=== PATIENT | male | born 1955 | race Caucasian/White ===

== ENCOUNTER 2022-10-16 11:30 | Outpatient (OUT) | payer MEDICARE, OTHER, SELFPAY ==
[2022-10-16 12:42] LABS: Anion Gap 17.2; BUN Creatinine Ratio 23.2; Calcium 8.8 mg/dL (8.5-10.1); Carbon Dioxide 22.8 mmol/L (21.0-32.0); Chloride 103 mmol/L (98-107); Estimated GFR (African America 27 (>=60); Estimated GFR (Non-African Ame 23 (>=60); Glucose 189 mg/dL (74-106); Magnesium 1.8 mg/dL (1.8-2.4); Sodium 138 mmol/L (136-145); Uric Acid 8.1 mg/dL (3.5-7.2)
[2022-10-17 10:08] LABS: PTH, Intact 24 pg/mL (15-65)
== END 2022-10-16 11:31 | disposition home or self-care (01) ==
LOC: LAB 11:35
PROVIDERS: PCP Family Medicine
DX: N18.9 Chronic kidney disease, unspecified (principal)
CPT/HCPCS: 36415; 80048; 83735; 83970; 84550

== ENCOUNTER 2022-11-15 09:21 | Outpatient (OUT) | payer MEDICARE, OTHER, SELFPAY ==
[2022-11-15 11:03] LABS: Anion Gap 13.8; BUN Creatinine Ratio 20.8; Calcium 9.2 mg/dL (8.5-10.1); Carbon Dioxide 23.2 mmol/L (21.0-32.0); Chloride 102 mmol/L (98-107); Estimated GFR (African America 30 (>=60); Estimated GFR (Non-African Ame 25 (>=60); Glucose 307 mg/dL (74-106); Magnesium 1.7 mg/dL (1.8-2.4); Sodium 135 mmol/L (136-145); Uric Acid 6.8 mg/dL (3.5-7.2)
[2022-11-16 15:09] LABS: PTH, Intact 40 pg/mL (15-65)
== END 2022-11-15 09:22 | disposition home or self-care (01) ==
LOC: LAB 09:23
PROVIDERS: PCP Family Medicine
DX: N18.9 Chronic kidney disease, unspecified (principal)
CPT/HCPCS: 36415; 80048; 83735; 83970; 84550

== ENCOUNTER 2023-02-06 13:10 | Emergency (ER) | payer MEDICARE, OTHER, SELFPAY ==
[2023-02-06 13:15] VITALS: PULSE 73; RESP 20; TEMP 36.8; O2SAT 99; BMI 25.8
--- NOTE | 2023-02-06 13:23 | ED_ITS ---
HPI - Back Pain/Injury General Chief Complaint: Back Pain/Injury Stated Complaint: BACK PAIN Time Seen by Provider: 02/06/23 13:18 Source: patient Mode of arrival: walk-in Limitations: no limitations History of Present Illness HPI Narrative: Patient is a 67-year-old male with a history of diabetes who presents to the emergency department for 3 to 4-day history of increasing low back pain. Patient reports most of his pain in the right low back and right hip. Pain is worse with movement. He denies any specific mechanism of injury or trauma, he states he may have been lifting to precipitate the back pain. He has no significant history of chronic back pain, no previous surgeries. He states pain radiates into the back of the right hip but he has not had any significant radicular symptoms, no peripheral paresthesias or urinary changes. Related Data Home Medications Medication Instructions Recorded Confirmed abiraterone 500 mg tablet (Zytiga) 1,000 mg PO DAILY 02/06/23 02/06/23 finerenone 10 mg tablet (Kerendia) 10 mg PO DAILY 02/06/23 02/06/23 glipizide 10 mg tablet 10 mg PO BID 02/06/23 02/06/23 metformin 500 mg tablet,extended 500 mg PO BID 02/06/23 02/06/23 release 24 hr paroxetine HCl 10 mg tablet (Paxil) 10 mg PO DAILY 02/06/23 02/06/23 prednisone 5 mg tablet 5 mg PO DAILY 02/06/23 02/06/23 rosuvastatin 20 mg tablet (Crestor) 20 mg PO DAILY 02/06/23 02/06/23 Previous Rx's Medication Instructions Recorded hydrocodone 5 mg-acetaminophen 325 1 tab PO Q6H PRN pain #12 tabs 02/06/23 mg tablet ketorolac 10 mg tablet 10 mg PO TID PRN pain #9 tabs 02/06/23 methocarbamol 750 mg tablet 750 mg PO TID PRN pain #20 tabs 02/06/23 Allergies Allergy/AdvReac Type Severity Reaction Status Date / Time No Known Drug Allergies Allergy Verified 02/06/23 13:15 Review of Systems ROS Constitutional Denies: fever or chills Ears, nose, mouth, and throat Denies: throat pain Cardiovascular Denies: chest pain Respiratory Denies: shortness of breath or cough Gastrointestinal Denies: abdominal pain, nausea or vomiting Genitourinary Denies: painful urination Musculoskeletal Reports: back pain; Denies: neck pain, extremity pain or extremity swelling Integumentary/Breast Denies: rash Neurological Denies: headache Exam Narrative Exam Narrative: Gen.: Awake, alert, in no distress Head: Normocephalic, atraumatic ENT: Moist mucous membranes Respiratory: No respiratory distress Back: No bony point tenderness of the T-spine or L-spine with diffuse tenderness of the paraspinal muscles of the lower lumbar spine on the right. No obvious deformity or step-off. Extremities: Moves extremities equally, normal dorsiflexion and plantarflexion of the bilateral lower extremities with no decrease in sensation to the medial thighs. Normal hip flexion bilaterally Psych: Normal mood and affect Neuro: No focal neuro deficit Skin: Warm, dry, intact Constitutional Vital Signs, click to edit/add: Last Vital Signs Temp 98.3 F 02/06/23 13:15 Pulse 73 02/06/23 13:15 Resp 20 02/06/23 13:15 BP 175/86 H 02/06/23 13:25 Pulse Ox 99 02/06/23 13:15 O2 Del Method Room Air 02/06/23 13:15 Course Vital Signs Vital signs: Vital Signs Temperature 98.3 F 02/06/23 13:15 Pulse Rate 73 02/06/23 13:15 Respiratory Rate 20 02/06/23 13:15 Pulse Oximetry 99 02/06/23 13:15 Oxygen Delivery Method Room Air 02/06/23 13:15 Temperature 98.3 F 02/06/23 13:15 Pulse Rate 73 02/06/23 13:15 Respiratory Rate 20 02/06/23 13:15 Blood Pressure 175/86 H 02/06/23 13:25 Pulse Oximetry 99 02/06/23 13:15 Oxygen Delivery Method Room Air 02/06/23 13:15 MDM - Back Pain/Injury MDM Narrative Medical decision making narrative: Lumbar spine x-rays with moderate arthritic changes and curvature of the spine. Exam is consistent with lumbosacral strain, no focal neuro deficits in the emergency department. Patient drove himself to the ER, treated with Toradol in the ER, discharged home with prescription for [place], Toradol, Robaxin. Follow- up with PCP and return to the ER if symptoms change or worsen. Medical Records Attestation: I reviewed the patient's medical records. Imaging Data XR lumbar spine: Attestation: I have reviewed the pertinent imaging results. Radiologist's impression: Procedure: XR lumbar spine 2-3V EXAMINATION: XR lumbar spine 2-3V HISTORY: Low back pain COMPARISON: No relevant comparison available. FINDINGS: BONES: Moderate left convex curvature of the lumbar spine. Grade 1 retrolisthesis of L2 on 3. Sclerosis adjacent the contiguous endplates of L2-3 suspected represent degenerative endplate changes rather than compression fracture. Moderate degenerative facet arthropathy L3-4 through L5-S1. No bone lesion. DISC SPACES: Marked narrowing along right side of L2-3. Marked narrowing L5-S1. Moderate narrowing L3-L4 and L4-5. PARASPINOUS: Negative. No paraspinous abnormality is seen. OTHER: Negative. IMPRESSION: 1. No appreciable acute abnormality. 2. Multilevel moderate degenerative changes. Electronically authenticated by: ELIEL MCDERMOTT Date: 02/06/2023 14:08 Discharge Plan Discharge Chief Complaint: Back Pain/Injury Clinical Impression: Low back pain, Lumbosacral strain Patient Disposition: Home, Self-Care Time of Disposition Decision: 14:25 Condition: Good Prescriptions / Home Meds: New hydrocodone-acetaminophen 5-325 mg tablet 1 tab PO Q6H PRN (Reason: pain) Qty: 12 0RF ketorolac 10 mg tablet 10 mg PO TID PRN (Reason: pain) Qty: 9 0RF methocarbamol 750 mg tablet 750 mg PO TID PRN (Reason: pain) Qty: 20 0RF No Action Kerendia 10 mg tablet 10 mg PO DAILY glipizide 10 mg tablet 10 mg PO BID metformin 500 mg tablet extended release 24 hr 500 mg PO BID prednisone 5 mg tablet 5 mg PO DAILY abiraterone [Zytiga] 500 mg tablet 1,000 mg PO DAILY Rx Instructions: must be taken on empty stomach, at least 1 hr before or 2 hrs after a meal/food paroxetine HCl [Paxil] 10 mg tablet 10 mg PO DAILY rosuvastatin [Crestor] 20 mg tablet 20 mg PO DAILY Instructions: Low Back Strain (ED), Acute Low Back Pain (ED) Stand Alone Forms: Portal Instructions Referrals: RONY MCGUIRE [Primary Care Provider] - 1 week
[2023-02-06 13:25] VITALS: BP 175/86
[2023-02-06] MEDS: KETOROLAC TROMETHAMINE 60 MG/2 ML VIAL IM (13:29)
--- NOTE | 2023-02-06 13:54 | XR_ITS ---
The [address] [address] Patient Name: GENEVIEVE SPARKS MRN: [id number] date: 1955 Sex: M Assigned Patient Location: ER Current Patient Location: ER Accession/Order Number: [id number] Exam Date: 02/06/2023 13:50 Report Date: 02/06/2023 14:08 At the request of: RAMON MILLS Procedure: XR lumbar spine 2-3V EXAMINATION: XR lumbar spine 2-3V HISTORY: Low back pain COMPARISON: No relevant comparison available. FINDINGS: BONES: Moderate left convex curvature of the lumbar spine. Grade 1 retrolisthesis of L2 on 3. Sclerosis adjacent the contiguous endplates of L2-3 suspected represent degenerative endplate changes rather than compression fracture. Moderate degenerative facet arthropathy L3-4 through L5-S1. No bone lesion. DISC SPACES: Marked narrowing along right side of L2-3. Marked narrowing L5-S1. Moderate narrowing L3-L4 and L4-5. PARASPINOUS: Negative. No paraspinous abnormality is seen. OTHER: Negative. XR/XR lumbar spine 2-3V IMPRESSION: 1. No appreciable acute abnormality. 2. Multilevel moderate degenerative changes. Electronically authenticated by: ELIEL MCDERMOTT Date: 02/06/2023 14:08
== END 2023-02-06 14:45 | disposition home or self-care (01) ==
PROVIDERS: Emergency Provider Emergency Medicine Emergency Medical Services; PCP Family Medicine
DX: S39.012A Strain of muscle, fascia and tendon of lower back, initial encounter (principal); E11.9 Type 2 diabetes mellitus without complications; Z79.899 Other long term (current) drug therapy; Z79.84 Long term (current) use of oral hypoglycemic drugs; X50.9XXA Other and unspecified overexertion or strenuous movements or postures, initial encounter
CPT/HCPCS: 72100; 96372; 99284

== ENCOUNTER 2023-10-31 08:48 | Outpatient (OUT) | payer MEDICARE, OTHER, SELFPAY ==
--- NOTE | 2023-10-31 | US_ITS ---
The [address] [address] Patient Name: GENEVIEVE SPARKS MRN: [id number] date: 1955 Sex: M Assigned Patient Location: Current Patient Location: Accession/Order Number: [id number] Exam Date: 10/31/2023 09:40 Report Date: 10/31/2023 14:00 At the request of: NON-STAFF PHYSICIAN Procedure: US venous doppler LE BI CLINICAL DATA: Swelling of the right leg. PROCEDURE: Bilateral lower extremity venous duplex ultrasound TECHNIQUE: Nix-scale, color flow, and waveform spectral analysis was performed of the bilateral lower extremities. FINDINGS: Acute appearing thrombus is seen within the right common femoral vein, femoral vein, and popliteal vein. Superficial venous thrombosis is seen within the right great saphenous vein. Chronic superficial venous thrombosis is seen within the small saphenous vein. The left common femoral, femoral, and popliteal veins are compressible. No superficial thrombus is seen within the left lower extremity. US/US venous doppler LE BI IMPRESSION: 1. Acute appearing thrombus noted within the right lower extremity as noted above. 2. Acute appearing superficial venous thrombosis involving the right great saphenous vein with chronic changes seen within the small saphenous vein. Electronically authenticated by: Ricco FAIRBANKS Date: 10/31/2023 14:00
--- NOTE | 2023-10-31 08:51 | US_ITS ---
The [address] [address] Patient Name: GENEVIEVE SPARKS MRN: [id number] date: 1955 Sex: M Assigned Patient Location: US Current Patient Location: Accession/Order Number: [id number] Exam Date: 10/31/2023 09:00 Report Date: 10/31/2023 14:00 At the request of: NON-STAFF PHYSICIAN Procedure: US arterial duplex LE BI EXAM: US arterial duplex LE BI HISTORY: Localized Edema. COMPARISON: None. TECHNIQUE: Nix-scale, color Doppler, and spectral Doppler waveform analysis was used to evaluate the bilateral lower extremity arteries. FINDINGS: Color-flow was seen throughout. No significant velocity elevations were seen to suggest a significant stenosis. However, it was difficult to obtain color flow and portions of the bilateral posterior tibial arteries. The anterior tibial arteries are widely patent. US/US arterial duplex LE BI IMPRESSION: No significant arterial occlusive disease noted by duplex criteria. However, there was limited color flow within the bilateral posterior tibial arteries. Electronically authenticated by: Ricco FAIRBANKS Date: 10/31/2023 14:00
== END 2023-10-31 08:49 | disposition home or self-care (01) ==
LOC: US 08:48
DX: R60.0 Localized edema (principal); E08.59 Diabetes mellitus due to underlying condition with other circulatory complications; I82.811 Embolism and thrombosis of superficial veins of right lower extremity
CPT/HCPCS: 93925; 93970

== ENCOUNTER 2023-10-31 10:11 | Emergency (ER) | payer MEDICARE, OTHER, SELFPAY ==
[2023-10-31 10:14] VITALS: BP 136/72; PULSE 68; TEMP 36.4; O2SAT 100; BMI 26.5
--- NOTE | 2023-10-31 10:33 | PC.NURSE ---
pt was sent over by ultrasound for finding a DVT in R lower ext. pain and swelling to extremity has been ongoing for 3 days
--- NOTE | 2023-10-31 10:57 | ECG_ITS ---
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
[2023-10-31 11:28] LABS: Hematocrit 35.4 % (42.0-54.0); Hemoglobin 12.2 g/dL (14.0-18.0); Mean Corpuscular HGB Conc 34.5 g/dL (29.9-35.2); Mean Corpuscular Hemoglobin 30.9 pg (25.9-34.0); Mean Corpuscular Volume 89.6 fL (80.0-94.0); Mean Platelet Volume 11.5 fL (9.5-13.5); Platelet Count 162 10^3/uL (150-450); Red Blood Count 3.95 10^6/uL (4.70-6.10); Red Cell Distribution Width 13.9 % (11.0-15.0); White Blood Count 7.6 10^3/uL (4.0-11.0)
[2023-10-31 11:33] LABS: INR 0.97; Prothrombin Time 10.3 sec (9.0-11.6)
[2023-10-31 11:34] LABS: Alanine Aminotransferase 16 U/L (16-63); Albumin Globulin Ratio 0.8; Albumin Level 3.3 g/dL (3.4-5.0); Alkaline Phosphatase 87 U/L (46-116); Anion Gap 15.6; Aspartate Amino Transferase 11 U/L (15-37); BUN Creatinine Ratio 23.4; Bilirubin Total 0.3 mg/dL (0.2-1.0); Calcium 9.6 mg/dL (8.5-10.1); Carbon Dioxide 23.8 mmol/L (21.0-32.0); Chloride 104 mmol/L (98-107); Estimated GFR (African America 29 (>=60); Estimated GFR (Non-African Ame 24 (>=60); Glucose 244 mg/dL (74-106); Potassium 4.4 mmol/L (3.5-5.1); Sodium 139 mmol/L (136-145); Total Protein 7.3 g/dL (6.4-8.2)
[2023-10-31 13:00] LABS: Eosinophils Absolute Manual 0.45 10^3/uL (0.00-0.70); Lymphocytes Absolute Manual 0.45 10^3/uL (1.20-3.80); Segmented Neut Absolute Manual 6.08 10^3/uL (1.4-6.5)
--- NOTE | 2023-10-31 13:32 | ED.EXTPRO1 ---
HPI - Extremity Problem General Chief complaint: Extremity Problem, Nontraumatic Stated complaint: DVT FOUND IN LEG PER RADIOLOGY Time Seen by Provider: 10/31/23 10:32 Source: patient Mode of arrival: walk-in Limitations: no limitations History of Present Illness HPI Narrative: The patient presenting to us with a right leg swelling that was diagnosed with a DVT as outpatient, the patient had a study done today it was not read yet but they told him to come to the ER, for the last 3 to 4 days he has been having swelling in his right leg he did not follow-up with his primary care doctor his aircraft accessories mechanic did the workup without The patient is not complaining of any fever chills chest pain or any shortness of breath He did mention that he had no history of DVT before and he had no immobilization or any incident where he was sleeping all day for the last few days The patient does not have a history of DVT Related Data Home Medications ?Medication ?Instructions ?Recorded ?Confirmed glipizide 10 mg tablet 10 mg PO BID 02/06/23 10/31/23 metformin 500 mg tablet,extended 500 mg PO BID 02/06/23 10/31/23 release 24 hr paroxetine HCl 10 mg tablet (Paxil) 10 mg PO DAILY 02/06/23 10/31/23 rosuvastatin 20 mg tablet (Crestor) 20 mg PO DAILY 02/06/23 10/31/23 bisoprolol 10 1 tab PO DAILY 10/31/23 10/31/23 mg-hydrochlorothiazide 6.25 mg tablet empagliflozin 10 mg tablet 10 mg PO DAILY 10/31/23 10/31/23 (Jardiance) Previous Rx's ?Medication ?Instructions ?Recorded apixaban 5 mg (74 tabs) tablets in See Rx Instructions .Route 10/31/23 a dose pack (Eliquis DVT-PE Treat .COMPLEX #74 ea 30D Start) Allergies Allergy/AdvReac Type Severity Reaction Status Date / Time No Known Drug Allergies Allergy Verified 10/31/23 10:19 Review of Systems ROS Status of ROS 10 or more systems reviewed and unremarkable except as noted in history and below Exam Narrative Exam Narrative: Nurses notes and vital signs reviewed and patient is not hypoxic. General: Well-appearing and in no apparent distress. Skin: Warm, dry, no pallor noted. No rash. Head: Normocephalic, atraumatic. Neck: Supple, non-tender. Eye: Pupils are equal, round and EOMI. No scleral icterus. Ears, Nose, Mouth, and Throat: TM are clear, no nasal mucosal hypertrophy. Oral mucosa is moist, no posterior oropharynx erythema, uvula is mid-line Cardiovascular: Regular Rate and Rhythm without murmur, gallop or rub. Respiratory: No accessory muscle use or respiratory distress. Lungs are clear to auscultation, no wheezing, rales or rhonchi Chest Wall: no tenderness Back: No midline thoracic or lumbar vertebral tenderness. No CVA tenderness Musculoskeletal: There is edema of the right thigh as well as the right leg with 1+ pitting edema and the patient have dopplerable pulse anterior tibial bilaterally it is weaker in the right side but still dopplerable in the left and right side GI: Abdomen is soft, non-distended. Normal bowel sounds. No masses appreciated. No tenderness to palpation. No rebound, guarding, or rigidity noted. Neurological: A&O x4. No cranial nerve dysfunction observed. No truncal ataxia. Moves all extremities. Sensation intact. Psychiatric: Cooperative and interactive. Normal mood and affect. Constitutional Vital Signs, click to edit/add: Last Vital Signs Temp 97.5 F L 10/31/23 10:14 Pulse 68 10/31/23 10:14 Resp 16 10/31/23 10:14 BP 136/72 10/31/23 10:14 Pulse Ox 100 10/31/23 10:14 O2 Del Method Room Air 10/31/23 10:14 Course Vital Signs Vital signs: Vital Signs Temperature 97.5 F L 10/31/23 10:14 Pulse Rate 68 10/31/23 10:14 Respiratory Rate 16 10/31/23 10:14 Blood Pressure 136/72 10/31/23 10:14 Pulse Oximetry 100 10/31/23 10:14 Oxygen Delivery Method Room Air 10/31/23 10:14 Temperature 97.5 F L 10/31/23 10:14 Pulse Rate 68 10/31/23 10:14 Respiratory Rate 16 10/31/23 10:14 Blood Pressure 136/72 10/31/23 10:14 Pulse Oximetry 100 10/31/23 10:14 Oxygen Delivery Method Room Air 10/31/23 10:14 MDM - Extremity (Nontraumatic) MDM Narrative Medical decision making narrative: CBC and chemistry showed no acute pathology except for the chronic kidney disease The patient DVT as well as arterial ultrasound done shows acute DVT that is extensive and the femoral area as well the superficial veins I did discuss the case with Dr. Cortes and he wanted to see the patient as outpatient on next for thrombectomy as well as starting the patient on Eliquis and Delta wrap applied Patient was instructed about monitoring his symptoms he is to come back in case of any symptoms or concerns The patient was started on Eliquis starting care with the 10 mg twice daily for 7 days then 5 mg twice daily to continue Patient provided with Dr. Cortes info The patient is to follow up with primary care physician in next 2-3 days or to return to the emergency department should any of the signs or symptoms worsen or new symptoms develop. The patient agrees with the following Diagnosis and Treatment plan and the patient will be discharged home. Lab Data Labs: Lab Results 10/31/23 Range/Units 10:40 WBC 7.6 (4.0-11.0) 10^3/uL RBC 3.95 L (4.70-6.10) 10^6/uL Hgb 12.2 L (14.0-18.0) g/dL Hct 35.4 L (42.0-54.0) % MCV 89.6 (80.0-94.0) fL MCH 30.9 (25.9-34.0) pg MCHC 34.5 (29.9-35.2) g/dL RDW 13.9 (11.0-15.0) % Plt Count 162 (150-450) 10^3/uL MPV 11.5 (9.5-13.5) fL Seg Neuts % (Manual) 80.0 H (43.0-75.0) Lymphocytes % (Manual) 6.0 L (20.5-60.0) % Monocytes % (Manual) 8.0 (1.7-12.0) % Eosinophils % (Manual) 6.0 (0.9-7.0) % Basophils % (Manual) 0.0 L (0.2-2.0) % Neutrophils # (Manual) 6.08 (1.4-6.5) 10^3/uL Lymphocytes # (Manual) 0.45 L (1.20-3.80) 10^3/uL Monocytes # (Manual) 0.60 (0.30-0.80) 10^3/uL Eosinophils # (Manual) 0.45 (0.00-0.70) 10^3/uL Basophils # (Manual) 0.00 (0.00-0.10) 10^3/uL PT 10.3 (9.0-11.6) sec INR 0.97 APTT 28.0 (22.3-36.2) sec Sodium 139 (136-145) mmol/L Potassium 4.4 (3.5-5.1) mmol/L Chloride 104 (98-107) mmol/L Carbon Dioxide 23.8 (21.0-32.0) mmol/L Anion Gap 15.6 BUN 62.0 H (7.0-18.0) mg/dL Creatinine 2.65 H (0.70-1.30) mg/dL Est GFR ( Amer) 29 L (>=60) Est GFR (Non-Af Amer) 24 L (>=60) BUN/Creatinine Ratio 23.4 Glucose 244 H (74-106) mg/dL Calcium 9.6 (8.5-10.1) mg/dL Total Bilirubin 0.3 (0.2-1.0) mg/dL AST 11 L (15-37) U/L ALT 16 (16-63) U/L Alkaline Phosphatase 87 (46-116) U/L Total Protein 7.3 (6.4-8.2) g/dL Albumin 3.3 L (3.4-5.0) g/dL Globulin 4.0 g/dL Albumin/Globulin Ratio 0.8 Discharge Plan Discharge Stand Alone Forms: Work/School Release, Portal Instructions Chief Complaint: Extremity Problem, Nontraumatic Clinical Impression: Deep venous thrombosis Qualifiers: DVT location: lower extremity Affected thrombotic vein of extremity: femoral Chronicity: acute Laterality: right Qualified Code(s): I82.411 - Acute embolism and thrombosis of right femoral vein Patient Disposition: Home, Self-Care Time of Disposition Decision: 13:09 Condition: Good Prescriptions / Home Meds: Jay Carrero DVT-PE Treat 30D Start 5 mg (74 tabs) tablets,dose pack See Rx Instructions .ROUTE .COMPLEX Qty: 74 0RF Rx Instructions: started packet direction 10 mg po bid for 7 days then 5 mg bid po after that No Action glipizide 10 mg tablet 10 mg PO BID metformin 500 mg tablet extended release 24 hr 500 mg PO BID paroxetine HCl [Paxil] 10 mg tablet 10 mg PO DAILY rosuvastatin [Crestor] 20 mg tablet 20 mg PO DAILY bisoprolol-hydrochlorothiazide 10-6.25 mg tablet 1 tab PO DAILY Jardiance 10 mg tablet 10 mg PO DAILY Print Language: Sinhala Instructions: Deep Vein Thrombosis (DC) Referrals: Laury Cortes MD [Physician] - As soon as possible (please call for your appointment next week ( )Address: [address] [place] [id number]) Physician,Non-Staff, [Primary Care Provider] - 1 week
== END 2023-10-31 13:40 | disposition home or self-care (01) ==
PROVIDERS: Emergency Provider Emergency Medicine
DX: I82.411 Acute embolism and thrombosis of right femoral vein (principal); R60.0 Localized edema; E08.59 Diabetes mellitus due to underlying condition with other circulatory complications
CPT/HCPCS: 36415; 80053; 85007; 85027; 85610; 85730; 93005; 93925; 93970; 99284

== ENCOUNTER 2024-02-10 13:31 | Observation (INO) | payer MEDICARE, OTHER, SELFPAY ==
[2024-02-10] VITALS (15 sets, daily range): BP systolic 98–143; BP diastolic 61–92; PULSE 60–82; TEMP 36.1–36.8; O2SAT 95–98; BMI 27.2
--- NOTE | 2024-02-10 13:48 | CT_ITS ---
[address] [address] Patient Name: GENEVIEVE SPARKS MRN: [id number] date: 1955 Sex: M Assigned Patient Location: ER Current Patient Location: ER Accession/Order Number: [id number] Exam Date: 02/10/2024 14:35 Report Date: 02/10/2024 15:27 At the request of: RAMON MILLS Procedure: CT chest wo con EXAMINATION: CT chest wo con HISTORY: Chest pain, hx DVT COMPARISON: No relevant comparison available. TECHNIQUE: Multi-planar CT images were created with IV contrast. Axial, Coronal, and Sagittal images. Dose reduction techniques were achieved by using automated exposure control and/or adjustment of mA and/or kV according to patient size and/or use of iterative reconstruction technique. FINDINGS: LUNGS: No visible pulmonary disease. PLEURA: No mass, effusion, or pneumothorax. VASCULATURE: No abnormality. SCOTT: No mass or adenopathy. MEDIASTINUM: No mass or adenopathy. CARDIAC: No enlargement or pericardial effusion Coronary arteries: Moderate to heavy calcifications AORTA: No aortic aneurysm. Moderate calcific atherosclerosis CHEST WALL: No mass or axillary adenopathy. BONES: No bone lesion or fracture. LIMITED ABDOMEN: No suspicious findings. Limited images of the upper abdomen. OTHER: Negative. CT/CT chest wo con IMPRESSION: No acute abnormality Electronically authenticated by: SABINA LINTON Date: 02/10/2024 15:27
--- NOTE | 2024-02-10 13:48 | ECG_ITS ---
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
--- NOTE | 2024-02-10 13:50 | ED.GENADUL1 ---
HPI HPI - General Adult General Chief complaint: Chest Pain Stated complaint: URTI COMPLAINTS Time Seen by Provider: 02/10/24 13:33 Source: patient Mode of arrival: walk-in Limitations: no limitations History of Present Illness HPI narrative: Patient is a 68-year-old male with a history of DVT on Eliquis, diabetes, high blood pressure and high cholesterol who presents to the ER for retrosternal chest pain that began 2 hours ago at rest. He denies shortness of breath. He states the pain is worse with movement and deep breathing. He denies fevers, cough or congestion. He has not had any new leg swelling. He states he has been compliant with his anticoagulant. He denies tobacco abuse. He denies any family history of coronary artery disease. He states his brother had a heart valve replacement. He denies any personal history of heart attack, stroke or stents in his heart. He states he felt nauseous and had an episode of vomiting earlier. He denies the pain radiating into his neck, shoulder or back. Related Data Home Medications ?Medication ?Instructions ?Recorded ?Confirmed glipizide 10 mg tablet 10 mg PO BID 02/06/23 02/10/24 metformin 500 mg tablet,extended 500 mg PO BID 02/06/23 02/10/24 release 24 hr paroxetine HCl 10 mg tablet (Paxil) 10 mg PO DAILY 02/06/23 02/10/24 rosuvastatin 20 mg tablet (Crestor) 20 mg PO DAILY 02/06/23 02/10/24 empagliflozin 10 mg tablet 10 mg PO DAILY 10/31/23 02/10/24 (Jardiance) apixaban 5 mg tablet (Eliquis) 5 mg PO Q12H 02/10/24 02/10/24 bisoprolol fumarate 10 mg tablet 10 mg PO DAILY 02/10/24 02/10/24 empagliflozin 25 mg tablet 25 mg PO DAILY 02/10/24 02/10/24 (Jardiance) omeprazole 40 mg capsule,delayed 40 mg PO DAILY 02/10/24 02/10/24 release simvastatin 20 mg tablet 20 mg PO DAILY 02/10/24 02/10/24 Allergies Allergy/AdvReac Type Severity Reaction Status Date / Time No Known Drug Allergies Allergy Verified 02/10/24 13:36 Opioid HPI Opioid Management Most Recent Opioid Data: Last Pain Scale 9 02/10/24 15:40 02/10/24 Last ED Pain Assessment 02/10/24 16:16 Last MAR Pain Assessment 02/10/24 15:40 Review of Systems ROS Constitutional Denies: fever or chills Ears, nose, mouth, and throat Denies: throat pain Cardiovascular Reports: chest pain Respiratory Denies: shortness of breath or cough Gastrointestinal Reports: nausea and vomiting Musculoskeletal Denies: back pain Integumentary/Breast Denies: rash Neurological Denies: numbness in extremities or weakness in extremities Hematologic/Lymphatic Reports: easy bruising and easy bleeding PFSH PFSH Social History Little interest or pleasure in doing things: not at all Feeling down, depressed, or hopeless: not at all Exam Narrative Exam Narrative: Gen.: Awake, alert, in no distress Head: Normocephalic, atraumatic ENT: Moist mucous membranes Respiratory: No respiratory distress, lungs clear bilaterally Cardio: Regular rate and rhythm Gastrointestinal: Abdomen is soft, nondistended and nontender to palpation Extremities: Moves extremities equally Psych: Normal mood and affect Neuro: No focal neuro deficit Skin: Warm, dry, intact Constitutional Vital Signs, click to edit/add: Last Vital Signs Temp 98.3 F 02/10/24 13:42 Pulse 76 02/10/24 16:00 Resp 16 02/10/24 16:00 BP 119/73 02/10/24 16:00 Pulse Ox 98 02/10/24 16:00 O2 Del Method Room Air 02/10/24 13:42 Course Vital Signs Vital signs: Vital Signs Blood Pressure 115/91 02/10/24 13:37 Pulse Oximetry 98 02/10/24 13:37 Temperature 98.3 F 02/10/24 13:42 Pulse Rate 76 02/10/24 16:00 Respiratory Rate 16 02/10/24 16:00 Blood Pressure 119/73 02/10/24 16:00 Pulse Oximetry 98 02/10/24 16:00 Oxygen Delivery Method Room Air 02/10/24 13:42 Medical Decision Making MDM Narrative Medical decision making narrative: Patient treated with aspirin, 1 sublingual nitro. He initially reported some improvement of chest pain but later told me that he did not have any improvement and continues to have pain with movement and deep breathing. He was given morphine and Zofran and is resting comfortably. EKG is unremarkable and 2 sets of troponins are within normal limits. Lipase is elevated, however the patient is on Crestor and is not having any active abdominal pain or vomiting. Limited images of the upper abdomen noted on CT of the chest without contrast do not show any acute process. Given cardiac risk factors of age, high blood pressure, high cholesterol and diabetes, the patient is admitted for cardiac rule out for cycling of enzymes. He is admitted to the hospitalist in stable condition SUPERVISED APC VISIT, PHYSICIAN ATTESTATION: Based on the medical record the care appears appropriate. ? Medical Records Medical records reviewed: Yes I reviewed the patient's medical records Lab Data Lab results reviewed: Yes I reviewed the patient's lab results Labs: Lab Results 02/10/24 02/10/24 02/10/24 Range/Units 13:53 13:56 16:01 WBC 11.1 H (4.0-11.0) 10^3/uL RBC 4.49 L (4.70-6.10) 10^6/uL Hgb 13.7 L (14.0-18.0) g/dL Hct 41.8 L (42.0-54.0) % MCV 93.1 (80.0-94.0) fL MCH 30.5 (25.9-34.0) pg MCHC 32.8 (29.9-35.2) g/dL RDW 14.0 (11.0-15.0) % Plt Count 168 (150-450) 10^3/uL MPV 10.9 (9.5-13.5) fL Neut % (Auto) 82.6 H (43.0-75.0) % Lymph % (Auto) 6.9 L (20.5-60.0) % [place] % (Auto) 7.3 (1.7-12.0) % Eos % (Auto) 2.5 (0.9-7.0) % Baso % (Auto) 0.4 (0.2-2.0) % Neut # (Auto) 9.2 H (1.4-6.5) 10^3/uL Lymph # (Auto) 0.8 L (1.2-3.8) 10^3/uL [place] # (Auto) 0.8 (0.3-0.8) 10^3/uL Eos # (Auto) 0.3 (0.0-0.7) 10^3/uL Baso # (Auto) 0.0 (0.0-0.1) 10^3/uL Abs Immat Gran (auto) 0.03 (0.00-0.03) 10^3/uL Imm/Tot Granulo (auto) 0.3 (0.0-0.5) % PT 10.7 (9.0-11.6) sec INR 1.01 Sodium 142 (136-145) mmol/L Potassium 4.8 (3.5-5.1) mmol/L Chloride 107 (98-107) mmol/L Carbon Dioxide 24.1 (21.0-32.0) mmol/L Anion Gap 15.7 BUN 58.0 H (7.0-18.0) mg/dL Creatinine 2.78 H (0.70-1.30) mg/dL Est GFR ( Amer) 28 L (>=60 mL/min/1.73m^2) Est GFR (Non-Af Amer) 23 L (>=60 mL/min/1.73m^2) BUN/Creatinine Ratio 20.9 Glucose 273 H (74-106) mg/dL Calcium 9.1 (8.5-10.1) mg/dL Total Bilirubin 0.4 (0.2-1.0) mg/dL AST 12 L (15-37) U/L ALT 17 (16-63) U/L Alkaline Phosphatase 99 (46-116) U/L Troponin I High Sens 4.1 <4.0 L (4.0-76.1) pg/mL NT-Pro-B Natriuret Pep 465.0 (<=900.0) pg/mL Total Protein 7.0 (6.4-8.2) g/dL Albumin 3.3 L (3.4-5.0) g/dL Globulin 3.7 g/dL Albumin/Globulin Ratio 0.9 Lipase 186.0 H (16.0-77.0) U/L Influenza Type A Ag Negative Influenza Type B Ag Negative SARS-CoV-2 Ag (CV2AG) Negative (NEGATIVE) Imaging Data CT scan - chest: Attestation: I have reviewed the pertinent imaging results. Radiologist's impression: ITS Impressions Chest CT 12/03/24 13:48 IMPRESSION: No acute abnormality Electronically authenticated by: SABINA LINTON Date: 02/10/2024 15:27 ECG Data Attestation: I personally reviewed and interpreted this ECG as follows: (No sinus rhythm at a rate of 74, no acute ST elevation or ectopy. EKG reviewed by attending physician) Discharge Plan Discharge Chief Complaint: Chest Pain Patient Disposition: Admitted as Observation Time of Disposition Decision: 15:35
[2024-02-10] MEDS: NITROGLYCERIN 0.4 MG BOTTLE SL (13:57)
[2024-02-10] MEDS: ASPIRIN 81 MG TAB.CHEW 162 MG PO (13:57)
[2024-02-10] MEDS: ONDANSETRON PF 4 MG/2 ML VIAL IV (13:58)
[2024-02-10 14:12] LABS: Basophils Percent Auto 0.4 % (0.2-2.0); Eosinophils Absolute Auto 0.3 10^3/uL (0.0-0.7); Eosinophils Percent Auto 2.5 % (0.9-7.0); Hematocrit 41.8 % (42.0-54.0); Hemoglobin 13.7 g/dL (14.0-18.0); Immature Granulocytes Abs Auto 0.03 10^3/uL (0.00-0.03); Immature Granulocytes Pct Auto 0.3 % (0.0-0.5); Lymphocytes Absolute Auto 0.8 10^3/uL (1.2-3.8); Lymphocytes Percent Auto 6.9 % (20.5-60.0); Mean Corpuscular HGB Conc 32.8 g/dL (29.9-35.2); Mean Corpuscular Hemoglobin 30.5 pg (25.9-34.0); Mean Corpuscular Volume 93.1 fL (80.0-94.0); Mean Platelet Volume 10.9 fL (9.5-13.5); Monocytes Absolute Auto 0.8 10^3/uL (0.3-0.8); Monocytes Percent Auto 7.3 % (1.7-12.0); Neutrophils Absolute Auto 9.2 10^3/uL (1.4-6.5); Neutrophils Percent Auto 82.6 % (43.0-75.0); Platelet Count 168 10^3/uL (150-450); Red Blood Count 4.49 10^6/uL (4.70-6.10); White Blood Count 11.1 10^3/uL (4.0-11.0)
[2024-02-10 14:21] LABS: INR 1.01; Prothrombin Time 10.7 sec (9.0-11.6)
[2024-02-10 14:22] LABS: Influenza Virus A Antigen Negative; Influenza Virus B Antigen Negative; Internal Control Within Normal Limits; SARS-CoV-2 Ag NEGATIVE (NEGATIVE)
[2024-02-10 14:23] LABS: Alanine Aminotransferase 17 U/L (16-63); Albumin Globulin Ratio 0.9; Albumin Level 3.3 g/dL (3.4-5.0); Alkaline Phosphatase 99 U/L (46-116); Anion Gap 15.7; Aspartate Amino Transferase 12 U/L (15-37); BUN Creatinine Ratio 20.9; Bilirubin Total 0.4 mg/dL (0.2-1.0); Calcium 9.1 mg/dL (8.5-10.1); Carbon Dioxide 24.1 mmol/L (21.0-32.0); Chloride 107 mmol/L (98-107); Estimated GFR (African America 28 (>=60 mL/min/1.73m^2); Estimated GFR (Non-African Ame 23 (>=60 mL/min/1.73m^2); Globulin 3.7 g/dL; Glucose 273 mg/dL (74-106); Potassium 4.8 mmol/L (3.5-5.1); Sodium 142 mmol/L (136-145)
[2024-02-10 14:29] LABS: Troponin I High Sensitivity 4.1 pg/mL (4.0-76.1)
[2024-02-10] MEDS: MORPHINE SULFATE 4 MG/ML VIAL IV (15:40)
[2024-02-10 16:23] LABS: Troponin I High Sensitivity <4.0 pg/mL (4.0-76.1)
[2024-02-10] MEDS: OXYCODONE HCL 5 MG TABLET PO (20:20)
[2024-02-10 20:26] LABS: Glucometer 288 mg/dL (74-106)
[2024-02-10] MEDS: APIXABAN 5 MG TABLET PO (20:55)
[2024-02-10 22:10] LABS: Troponin I High Sensitivity <4.0 pg/mL (4.0-76.1)
[2024-02-11] VITALS (24 sets, daily range): BP systolic 101–140; BP diastolic 67–75; PULSE 59–76; TEMP 36.1–36.9; O2SAT 97–98
[2024-02-11] MEDS: OXYCODONE HCL 5 MG TABLET PO ×2 (01:54→09:31)
[2024-02-11 05:45] LABS: Basophils Percent Auto 0.3 % (0.2-2.0); Eosinophils Absolute Auto 0.1 10^3/uL (0.0-0.7); Eosinophils Percent Auto 0.6 % (0.9-7.0); Hematocrit 37.9 % (42.0-54.0); Hemoglobin 12.3 g/dL (14.0-18.0); Immature Granulocytes Abs Auto 0.06 10^3/uL (0.00-0.03); Immature Granulocytes Pct Auto 0.6 % (0.0-0.5); Lymphocytes Absolute Auto 0.7 10^3/uL (1.2-3.8); Lymphocytes Percent Auto 6.5 % (20.5-60.0); Mean Corpuscular HGB Conc 32.5 g/dL (29.9-35.2); Mean Corpuscular Hemoglobin 30.6 pg (25.9-34.0); Mean Corpuscular Volume 94.3 fL (80.0-94.0); Mean Platelet Volume 11.5 fL (9.5-13.5); Monocytes Absolute Auto 1.1 10^3/uL (0.3-0.8); Monocytes Percent Auto 9.8 % (1.7-12.0); Neutrophils Percent Auto 82.2 % (43.0-75.0); Platelet Count 166 10^3/uL (150-450); Red Blood Count 4.02 10^6/uL (4.70-6.10); Red Cell Distribution Width 14.5 % (11.0-15.0); White Blood Count 10.9 10^3/uL (4.0-11.0)
[2024-02-11 06:16] LABS: Alanine Aminotransferase 15 U/L (16-63); Albumin Globulin Ratio 0.8; Albumin Level 2.8 g/dL (3.4-5.0); Alkaline Phosphatase 82 U/L (46-116); Anion Gap 15.8; Aspartate Amino Transferase 6 U/L (15-37); BUN Creatinine Ratio 19.6; Bilirubin Total 0.5 mg/dL (0.2-1.0); Calcium 8.6 mg/dL (8.5-10.1); Carbon Dioxide 21.6 mmol/L (21.0-32.0); Chloride 105 mmol/L (98-107); Estimated GFR (African America 22 (>=60 mL/min/1.73m^2); Estimated GFR (Non-African Ame 18 (>=60 mL/min/1.73m^2); Globulin 3.7 g/dL; Glucose 202 mg/dL (74-106); Potassium 5.4 mmol/L (3.5-5.1); Sodium 137 mmol/L (136-145); Total Protein 6.5 g/dL (6.4-8.2)
[2024-02-11] MEDS: 0.9 % SODIUM CHLORIDE 1,000 ML 1000 ML IV (08:23)
[2024-02-11] MEDS: APIXABAN 5 MG TABLET PO ×2 (08:27→20:24)
[2024-02-11] MEDS: METOPROLOL TARTRATE 100 MG TABLET PO ×2 (08:27→20:24)
[2024-02-11] MEDS: OMEPRAZOLE 40 MG CAPSULE.DR PO (08:28)
[2024-02-11] MEDS: ATORVASTATIN CALCIUM 10 MG TABLET PO (08:28)
[2024-02-11 08:33] LABS: Glucometer 168 mg/dL (74-106)
[2024-02-11] MEDS: PAROXETINE HCL 20 MG TABLET 10 MG PO (09:24)
[2024-02-11] MEDS: 0.9 % SODIUM CHLORIDE 1,000 ML 100 ML IV ×2 (10:30→20:24)
--- NOTE | 2024-02-11 12:09 | SWNOTE1 ---
Medicare Outpatient Observation Notice reviewed and discussed with patient. Pt. verbalized understanding and signed the form. Original given to patient and copy placed in patient?s chart.
--- NOTE | 2024-02-11 12:10 | SWNOTE1 ---
SW met with pt to discuss dc needs. Pt lives at home alone, [place]. Pt is independent and does not use any DME. Pt has no anticipated discharge needs at this time. SW to follow as needed.
[2024-02-11 12:16] LABS: Glucometer 155 mg/dL (74-106)
--- NOTE | 2024-02-11 12:39 | CM.NOTE ---
Rounds made with Dr. Franklin. Dr. Franklin discussed the possible explanations for the chest pain and discussed labs, xrays and test results. Nikolay verbalized understanding. Dr. Franklin discussed ordering an outpatient stress test and for Nikolay to followup with his PCP to discuss results. Nikolay verbalized understanding. Plan is for discharge today.
[2024-02-11 13:18] LABS: BUN Creatinine Ratio 18.4; Calcium 8.5 mg/dL (8.5-10.1); Carbon Dioxide 21.4 mmol/L (21.0-32.0); Chloride 105 mmol/L (98-107); Estimated GFR (African America 21 (>=60 mL/min/1.73m^2); Estimated GFR (Non-African Ame 17 (>=60 mL/min/1.73m^2); Glucose 183 mg/dL (74-106); Sodium 138 mmol/L (136-145)
[2024-02-11 13:30] LABS: Anion Gap 17.6
--- NOTE | 2024-02-11 13:43 | ECG_ITS ---
[facility] Test Date: 2024-02-11 Pat Name: GENEVIEVE SPARKS Department: Room: [facility] [place] [facility] [place] Gender: Male Chief Sustainability Officer: : 1955 Requested By: [id number] Order Number: [id number] Reading MD: CASSIE VELASQUEZ Measurements Intervals [place] Rate: 62 P: 44 MA: 150 QRS: 79 QRSD: 76 T: 32 QT: 388 QTc: 393 Interpretive Statements 1100 Sinus rhythm 8102 Low QRS voltage in chest leads 9120 atypical ECG Compared to ECG 02/10/2024 13:38:46 Low QRS voltage now present Electronically Signed On 02-11-2024 22:58:17 EST by CASSIE VELASQUEZ
--- NOTE | 2024-02-11 14:09 | US_ITS ---
The [address] [address] Patient Name: GENEVIEVE SPARKS MRN: [id number] date: 1955 Sex: M Assigned Patient Location: ICU Current Patient Location: ICU Accession/Order Number: [id number] Exam Date: 02/11/2024 18:20 Report Date: 02/11/2024 20:30 At the request of: SHAIKH ADRIÁN Procedure: US renal BI EXAM: US renal BI , 02/11/2024 HISTORY: JOSE L COMPARISON: Previous ultrasound from 2022. TECHNIQUE: Multiplanar grayscale and color ultrasound imaging of the kidneys and urinary bladder was performed. FINDINGS: The right kidney measures 9.8 x 4 x 5.2 cm, diffusely mild increased echogenicity, consistent with medical renal disease. No hydronephrosis. Cortical thickness measures 1.2 cm, within normal limits. The left kidney measures 9.3 x 5.2 x 5.4 cm. Mild increased echogenicity, consistent with medical renal disease. No hydronephrosis. Cortical thickness measures 1 7, within normal limits. The urinary bladder is 5.7 x 8.5 x 8.2 cm without obvious abnormality. The urinary bladder volume is 283 ml. Mild prostatic enlargement measuring 4.6 x 3.6 x 4.3 cm. US/US renal BI IMPRESSION: Mild increase in the echogenicity of the right and left kidneys, consistent with medical renal disease. No hydronephrosis on the right or left side. Electronically authenticated by: CHESTER ALMAZAN Date: 02/11/2024 20:30
[2024-02-11 14:13] LABS: Troponin I High Sensitivity 4.8 pg/mL (4.0-76.1)
[2024-02-11] MEDS: DEXTROSE 50 %-WATER 25 GM/50 ML SYRINGE IV (14:26)
[2024-02-11] MEDS: INSULIN REGULAR, HUMAN (100 UNIT/ML) 10 ML MDV 10 UNIT IV (14:26)
[2024-02-11] MEDS: SODIUM POLYSTYRENE SULFON 15 GM/60 ML ORAL.SUSP KAYEXALATE 30 GM PO (14:27)
--- NOTE | 2024-02-11 15:29 | PM.HP ---
HPI H&P: HPI History of Present Illness Chief complaint: URTI COMPLAINTS CHEST PAIN Narrative: 68-year-old male with past medical history of type 2 diabetes, hypertension, hyperlipidemia presented to ER last evening with pleuritic chest pain that is started when he woke up in the morning. His pain is pleuritic in nature and was initially sharp but has now overall improved during the course of admission. He can still feel it when he takes a deep breath. He has no other symptoms associated with it and denies shortness of breath, heart palpitations, dizziness. He has no known prior history of coronary artery disease or congestive heart failure. He was recently diagnosed with DVT about 3 months ago and he has been using Eliquis religiously without missing a dose. He had no acute ischemic changes on EKG and has had negative cardiac enzymes x 4. On morning labs he had mild acute kidney injury and hyperkalemia. I ordered a 1 L bolus for him along with normal saline at 100 mL an hour however his repeat BMP showed worsening serum creatinine and hyperkalemia. I was also informed that patient has had only 250 mL of urine output since this morning. I ordered IV insulin and dextrose for hyperkalemia and a recheck of his basic metabolic panel to follow-up on hyperkalemia and serum creatinine. He comfortable and has no complaints to offer. Opioid HPI Opioid Management Most Recent Pain and Opioid Data: Last Pain Scale 5 02/11/24 15:00 02/11/24 Last Pain Assessment 02/11/24 15:00 Last ED Pain Assessment 02/10/24 16:16 Last MAR Pain Assessment 02/11/24 10:32 Last ORT Total Score 0 02/10/24 17:19 02/10/24 Last ORT Risk Category Low Risk 02/10/24 17:19 02/10/24 Review of Systems ROS Status of ROS 10 or more systems reviewed and unremarkable except as noted in history and below [facility] Medical History (Updated 02/11/24 @ 16:22 by Shaikh Noemi MD) HLD (hyperlipidemia) ?E78.5 - Hyperlipidemia, unspecified (ICD-10) CKD (chronic kidney disease) stage 4, GFR 15-29 ml/min ?N18.4 - Chronic kidney disease, stage 4 (severe) (ICD-10) Deep vein phlebitis and thrombophlebitis of the leg ?I80.209 - Phlebitis and thrombophlebitis of unspecified deep vessels of unspecified lower extremity (ICD-10) Hypercholesteremia ?E78.00 - Pure hypercholesterolemia, unspecified (ICD-10) Hypertension ?I10 - Essential (primary) hypertension (ICD-10) Depression ?F32.A - Depression, unspecified (ICD-10) Diabetes ?E11.9 - Type 2 diabetes mellitus without complications (ICD-10) Social History (Updated 02/11/24 @ 15:30 by Shaikh Noemi MD) Within the past year, how often did you have a drink containing alcohol: never Score interpretation: A score less than 4 is consistent with normal alcohol consumption. Smoking status: Never smoker Non-prescribed substance use: denies use Little interest or pleasure in doing things: not at all Feeling down, depressed, or hopeless: not at all Meds Home Medications and Allergies Home Medications ?Medication ?Instructions ?Recorded ?Confirmed ?Type glipizide 10 mg tablet 10 mg PO BIDWM 02/06/23 02/11/24 History metformin 500 mg tablet,extended 500 mg PO BID 02/06/23 02/10/24 History release 24 hr paroxetine HCl 10 mg tablet (Paxil) 10 mg PO DAILY 02/06/23 02/10/24 History apixaban 5 mg tablet (Eliquis) 5 mg PO Q12H 02/10/24 02/10/24 History bisoprolol fumarate 10 mg tablet 10 mg PO DAILY 02/10/24 02/10/24 History empagliflozin 25 mg tablet 25 mg PO DAILY 02/10/24 02/10/24 History (Jardiance) omeprazole 40 mg capsule,delayed 40 mg PO DAILY 02/10/24 02/10/24 History release simvastatin 20 mg tablet 20 mg PO DAILY 02/10/24 02/10/24 History Allergies Allergy/AdvReac Type Severity Reaction Status Date / Time No Known Drug Allergies Allergy Verified 02/10/24 13:36 Exam Constitutional Vital Signs, click to edit/add: Last Vital Signs Temp 98.2 F 02/11/24 12:00 Pulse 60 02/11/24 14:53 Resp 12 02/11/24 14:30 BP 139/75 02/11/24 14:47 Pulse Ox 98 02/11/24 14:53 O2 Del Method Room Air 02/11/24 10:58 Documenting provider has reviewed patient's vital signs: yes Common normals: no apparent distress and oriented x3 General appearance: cooperative HENMT Common normals: normocephalic and head/scalp atraumatic Head and scalp: normocephalic and atraumatic Eye Common normals: conjunctivae normal and no scleral icterus Conjunctiva: conjunctiva(e) normal Respiratory Common normals: normal respiratory effort and clear to auscultation bilaterally Effort & inspection: able to speak in complete sentences Auscultation: clear to auscultation bilaterally Cardio Common normals: regular rate, S1 normal heart sound and S2 normal heart sound Rate: regular rate Heart sounds: S1 normal and S2 normal GI Common normals: Normal to inspection, nondistended, normoactive bowel sounds present, soft to palpation, non-tender and no hepatosplenomegaly Palpation: soft and no hepatosplenomegaly Extremity Common normals: no clubbing, cyanosis or edema Neuro Common normals: oriented x3, moves all extremities and no focal motor deficits Psych Common normals: mental status grossly normal, denies hallucinations, denies homicidal ideation and denies suicidal ideation Results Labs Labs: Short CBC 02/11/24 Range/Units 05:02 WBC 10.9 (4.0-11.0) 10^3/uL Hgb 12.3 L (14.0-18.0) g/dL Hct 37.9 L (42.0-54.0) % Plt Count 166 (150-450) 10^3/uL BMP 02/11/24 02/11/24 05:02 12:50 Sodium 137 138 Potassium 5.4 H 6.0 H Chloride 105 105 Carbon Dioxide 21.6 21.4 BUN 65.0 H 65.0 H Creatinine 3.32 H 3.53 H Glucose 202 H 183 H Calcium 8.6 8.5 Liver Function 02/11/24 Range/Units 05:02 Total Bilirubin 0.5 (0.2-1.0) mg/dL AST 6 L (15-37) U/L ALT 15 L (16-63) U/L Alkaline Phosphatase 82 (46-116) U/L Albumin 2.8 L (3.4-5.0) g/dL Assessment and Plan Assessment and Plan (1) Chest pain: Assessment and Plan: No acute finding on EKG, Negative cardiac enzymes. Suspect muskuloskeletal pain. Exercise stress test scheduled for outpatient. Qualifiers: Chest pain type: intercostal pain Qualified Code(s): R07.82 - Intercostal pain (2) JOSE L (acute kidney injury): Assessment and Plan: Worsening cr, now upto 3.5, decrease UO. Started on IVF. Monitor UO, cr closely (3) Hyperkalemia: Assessment and Plan: Due to JOSE L. Given dextrose/Insulin and Kayaxelate. (4) Hypertension: Assessment and Plan: Stable. C/w home medications. Qualifiers: Hypertension type: primary hypertension Qualified Code(s): I10 - Essential (primary) hypertension (5) Diabetes: Assessment and Plan: On oral hypoglycemics. SSHI while inpatient. Qualifiers: Chronic kidney disease stage: stage 4 (GFR 15-29) Diabetes mellitus complication detail: with chronic kidney disease Diabetes mellitus complication status: with kidney complications Diabetes mellitus terminal operations supervisor insulin use: without terminal operations supervisor use Diabetes mellitus type: type 2 Qualified Code(s): E11.22 - Type 2 diabetes mellitus with diabetic chronic kidney disease; N18.4 - Chronic kidney disease, stage 4 (severe) (6) CKD (chronic kidney disease) stage 4, GFR 15-29 ml/min: Assessment and Plan: CKD 4 at baseline. Cr at baseline is 2.5-2.8 (7) HLD (hyperlipidemia): Assessment and Plan: c/w simvastatin Qualifiers: Hyperlipidemia type: unspecified Qualified Code(s): E78.5 - Hyperlipidemia, unspecified
[2024-02-11 16:06] LABS: Anion Gap 16.3; BUN Creatinine Ratio 17.3; Calcium 8.3 mg/dL (8.5-10.1); Carbon Dioxide 19.6 mmol/L (21.0-32.0); Chloride 104 mmol/L (98-107); Estimated GFR (African America 20 (>=60 mL/min/1.73m^2); Estimated GFR (Non-African Ame 16 (>=60 mL/min/1.73m^2); Glucose 237 mg/dL (74-106); Potassium 4.9 mmol/L (3.5-5.1); Sodium 135 mmol/L (136-145)
[2024-02-11 17:02] LABS: Glucometer 214 mg/dL (74-106)
[2024-02-11 20:05] LABS: Glucometer 200 mg/dL (74-106)
[2024-02-12] VITALS (7 sets, daily range): BP systolic 116–161; BP diastolic 64–85; PULSE 67–69; TEMP 36.6–36.8; O2SAT 97–98
[2024-02-12] MEDS: 0.9 % SODIUM CHLORIDE 1,000 ML 100 ML IV (05:34)
[2024-02-12 05:36] LABS: Hemoglobin 12.7 g/dL (14.0-18.0); Mean Corpuscular HGB Conc 32.6 g/dL (29.9-35.2); Mean Corpuscular Hemoglobin 30.8 pg (25.9-34.0); Mean Corpuscular Volume 94.7 fL (80.0-94.0); Mean Platelet Volume 11.7 fL (9.5-13.5); Platelet Count 140 10^3/uL (150-450); Red Blood Count 4.12 10^6/uL (4.70-6.10); Red Cell Distribution Width 14.6 % (11.0-15.0); White Blood Count 8.2 10^3/uL (4.0-11.0)
[2024-02-12 05:57] LABS: Alanine Aminotransferase 15 U/L (16-63); Albumin Level 2.6 g/dL (3.4-5.0); Alkaline Phosphatase 85 U/L (46-116); Anion Gap 20.1; Aspartate Amino Transferase 9 U/L (15-37); BUN Creatinine Ratio 18.8; Bilirubin Total 0.4 mg/dL (0.2-1.0); Calcium 8.2 mg/dL (8.5-10.1); Carbon Dioxide 17.8 mmol/L (21.0-32.0); Chloride 106 mmol/L (98-107); Estimated GFR (African America 23 (>=60 mL/min/1.73m^2); Estimated GFR (Non-African Ame 19 (>=60 mL/min/1.73m^2); Glucose 177 mg/dL (74-106); Potassium 3.9 mmol/L (3.5-5.1); Sodium 140 mmol/L (136-145); Total Protein 6.6 g/dL (6.4-8.2)
[2024-02-12 06:06] LABS: Atypical Lymphocytes Abs Man 0.32; Eosinophils Absolute Manual 0.16 10^3/uL (0.00-0.70); Lymphocytes Absolute Manual 0.08 10^3/uL (1.20-3.80); Monocytes Absolute Manual 0.24 10^3/uL (0.30-0.80); Segmented Neut Absolute Manual 7.46 10^3/uL (1.4-6.5)
[2024-02-12 06:08] LABS: Albumin Globulin Ratio 0.7
[2024-02-12] MEDS: PAROXETINE HCL 20 MG TABLET 10 MG PO (08:14)
[2024-02-12] MEDS: APIXABAN 5 MG TABLET PO (08:14)
[2024-02-12] MEDS: OMEPRAZOLE 40 MG CAPSULE.DR PO (08:15)
[2024-02-12] MEDS: METOPROLOL TARTRATE 100 MG TABLET PO (08:15)
[2024-02-12] MEDS: ATORVASTATIN CALCIUM 10 MG TABLET PO (08:15)
--- NOTE | 2024-02-12 09:37 | P.DS_ITS ---
DS: Providers Provider Date of admission: 02/10/24 16:55 Primary care physician: Non-Staff PhysicianMD Admitting clinician: Shaikh Noemi Attending physician on admission: Shaikh Noemi Attending physician on discharge: Shaikh Noemi Discharging clinician: Shaikh Noemi Anticipated date of discharge: 02/12/24 DS: Diagnosis Discharge Diagnosis (1) Chest pain: Qualifiers: Chest pain type: intercostal pain Qualified Code(s): R07.82 - Intercostal pain (2) JOSE L (acute kidney injury): (3) Hyperkalemia: (4) Hypertension: Qualifiers: Hypertension type: primary hypertension Qualified Code(s): I10 - Essential (primary) hypertension (5) Diabetes: Qualifiers: Diabetes mellitus type: type 2 Diabetes mellitus senior living insulin use: without long term care phlebotomist use Diabetes mellitus complication status: with kidney complications Diabetes mellitus complication detail: with chronic kidney disease Chronic kidney disease stage: stage 4 (GFR 15-29) Qualified Code(s): E11.22 - Type 2 diabetes mellitus with diabetic chronic kidney disease; N18.4 - Chronic kidney disease, stage 4 (severe) (6) CKD (chronic kidney disease) stage 4, GFR 15-29 ml/min: (7) HLD (hyperlipidemia): Qualifiers: Hyperlipidemia type: unspecified Qualified Code(s): E78.5 - Hyperlipidemia, unspecified DS: Summary Hospital Course Hospital Course: 68-year-old male with past medical history of type 2 diabetes, hypertension, hyperlipidemia presented to ER with pleuritic chest pain that started when he woke up in the morning. He had no other symptoms associated with it and denied shortness of breath, heart palpitations, dizziness. He has no known prior history of coronary artery disease or congestive heart failure. He was recently diagnosed with DVT about 3 months ago and he has been using Eliquis religiously without missing a dose. He had no acute ischemic changes on EKG and has had negative cardiac enzymes x 4. His CP resolved during admission. He developed JOSE L during admission with Cr as high as 3.7 from a baseline of 2.5-2.8. He received IV insulin/dextrose and Kadie axelate. He also received IVF for JOSE L. He had renal US done that did not reveal any obstruction. His cr improved to 3.3 from a high of 3.7. He is medically stable for discharge. He had f/u jamison with Nephrology in 2 weeks. He was instructed to have BMP in one week, script handed over to patient. He is also scheduled for outpatient exercise test. Patient is on metformin, given his GFR, he is at high risk of lactic acidosis and was instructed to stop metformin and d/w PCP Patient medically stable for discharge. F/u with PCP in one week Status at Discharge Functional status at discharge: independent ambulation Overall status at discharge: patient is back to baseline Time Spent with Patient Time attestation: Total time spent providing and/or coordinating discharge services: Time spent: greater than 30 minutes Exam Constitutional Vital Signs, click to edit/add: Last Vital Signs Temp 98.2 F 02/12/24 07:59 Pulse 68 02/12/24 07:59 Resp 17 02/12/24 05:23 BP 146/78 H 02/12/24 07:59 Pulse Ox 98 02/12/24 07:59 O2 Del Method Room Air 02/12/24 05:23 Documenting provider has reviewed patient's vital signs: yes Common normals: no apparent distress and oriented x3 General appearance: cooperative Respiratory Common normals: normal respiratory effort and clear to auscultation bilaterally Effort & inspection: able to speak in complete sentences Auscultation: clear to auscultation bilaterally Cardio Common normals: regular rate, S1 normal heart sound and S2 normal heart sound Rate: regular rate Heart sounds: S1 normal and S2 normal GI Common normals: Normal to inspection, nondistended, normoactive bowel sounds present, soft to palpation, non-tender and no hepatosplenomegaly Palpation: soft and no hepatosplenomegaly Extremity Common normals: no clubbing, cyanosis or edema Neuro Common normals: oriented x3, moves all extremities and no focal motor deficits Psych Common normals: mental status grossly normal, denies hallucinations, denies homicidal ideation and denies suicidal ideation DS: Data Data Completed and Pending Labs on day of discharge: Labs from last 24 hours 02/12/24 02/11/24 02/11/24 04:53 20:04 17:01 WBC 8.2 RBC 4.12 L Hgb 12.7 L Hct 39.0 L MCV 94.7 H MCH 30.8 MCHC 32.6 RDW 14.6 Plt Count 140 L MPV 11.7 Seg Neuts % (Manual) 91.0 H Lymphocytes % (Manual) 1.0 L Atypical Lymphs % (Man) 4.0 Monocytes % (Manual) 3.0 Eosinophils % (Manual) 2.0 Basophils % (Manual) 0.0 L Neutrophils # (Manual) 7.46 H Lymphocytes # (Manual) 0.08 L Abs Atypical Lymphs Man 0.32 Monocytes # (Manual) 0.24 L Eosinophils # (Manual) 0.16 Basophils # (Manual) 0.00 Sodium 140 Potassium 3.9 Chloride 106 Carbon Dioxide 17.8 L Anion Gap 20.1 BUN 61.0 H Creatinine 3.25 H Est GFR ( Amer) 23 L Est GFR (Non-Af Amer) 19 L BUN/Creatinine Ratio 18.8 Glucose 177 H Calcium 8.2 L Total Bilirubin 0.4 AST 9 L ALT 15 L Alkaline Phosphatase 85 Troponin I High Sens Total Protein 6.6 Albumin 2.6 L Globulin 4.0 Albumin/Globulin Ratio 0.7 POC Glucose 200 H 214 H 02/11/24 02/11/24 02/11/24 15:37 12:50 12:16 WBC RBC Hgb Hct MCV MCH MCHC RDW Plt Count MPV Seg Neuts % (Manual) Lymphocytes % (Manual) Atypical Lymphs % (Man) Monocytes % (Manual) Eosinophils % (Manual) Basophils % (Manual) Neutrophils # (Manual) Lymphocytes # (Manual) Abs Atypical Lymphs Man Monocytes # (Manual) Eosinophils # (Manual) Basophils # (Manual) Sodium 135 L 138 Potassium 4.9 6.0 H Chloride 104 105 Carbon Dioxide 19.6 L 21.4 Anion Gap 16.3 17.6 BUN 65.0 H 65.0 H Creatinine 3.75 H 3.53 H Est GFR ( Amer) 20 L 21 L Est GFR (Non-Af Amer) 16 L 17 L BUN/Creatinine Ratio 17.3 18.4 Glucose 237 H 183 H Calcium 8.3 L 8.5 Total Bilirubin AST ALT Alkaline Phosphatase Troponin I High Sens 4.8 Total Protein Albumin Globulin Albumin/Globulin Ratio POC Glucose 155 H Discharge Plan Discharge Disposition: Home, Self-Care Condition: Good Discharge Medications: Continued glipizide 10 mg tablet 10 mg PO BIDWM paroxetine HCl [Paxil] 10 mg tablet 10 mg PO DAILY bisoprolol fumarate 10 mg tablet 10 mg PO DAILY Eliquis 5 mg tablet 5 mg PO Q12H Jardiance 25 mg tablet 25 mg PO DAILY omeprazole 40 mg capsule,delayed release(DR/EC) 40 mg PO DAILY simvastatin 20 mg tablet 20 mg PO DAILY Discontinued metformin 500 mg tablet extended release 24 hr 500 mg PO BID Activity: increase activity as tolerated Diet: advance to your usual diet Print Language: Mozambican Forms: Portal Instructions Follow Up Appointments: Cardiac Stress Test at [facility] on 02/23/24 at 0915, fast 8 hours prior, no caffeine. Call [phone] ext [phone] to reschedule if needed. Josefina Zamorano HEAVY MOBILE EQUIPMENT OPERATOR, Friday, 2023 at 10:40, [place] [facility],
--- NOTE | 2024-02-12 10:17 | CM.NOTE ---
Rounds made with Dr. Franklin. Plan for discharge today. Outpatient labs to be drawn before physician appointments-slip given. Nephrology appointment previously scheduled for February 25, 2024. Follow up with PCP in one week.
--- NOTE | 2024-02-13 13:25 | CM.DCFOLLOWU ---
1st attempt 02/13/24, no answer
== END 2024-02-12 10:06 | disposition home or self-care (01) ==
LOC: ER 16:41 → ICU 17:17
PROVIDERS: Physician Assistant; Admitting Provider Internal Medicine; Emergency Provider Emergency Medicine; Visit Provider Internal Medicine
DX: R07.82 Intercostal pain (principal); N17.9 Acute kidney failure, unspecified; E87.5 Hyperkalemia; I10 Essential (primary) hypertension; E11.22 Type 2 diabetes mellitus with diabetic chronic kidney disease; N18.4 Chronic kidney disease, stage 4 (severe); E78.5 Hyperlipidemia, unspecified; Z79.899 Other long term (current) drug therapy; Z79.84 Long term (current) use of oral hypoglycemic drugs; Z20.822 Contact with and (suspected) exposure to COVID-19
CPT/HCPCS: 36415; 71250; 76775; 80048; 80053; 82948; 83690; 83880; 84484; 85007; 85025; 85027; 85610; 87804; 87811; 93005; 94761; 96374; 96375; 99285; G0378; J1817; J2270; J2405